=== PATIENT | female | born 1970 | race Caucasian/White ===

== ENCOUNTER 2020-11-27 11:11 | Inpatient (IN) ==
[2020-11-27] MEDS ORDERED: morphine 2 MG/ML VIAL IV PRN (11:25)
[2020-11-27] MEDS ORDERED: 0.9 % SODIUM CHLORIDE 2,000 ML IV ONE (11:25)
--- NOTE | 2020-11-27 11:30 | Emergency Department Note ---
HPI General Chief complaint: Abdominal Pain Stated complaint: Diverticulitis Time Seen by Provider: 11/27/20 11:18 Source: patient Mode of arrival: ambulatory Limitations: no limitations History of Present Illness HPI Narrative: Patient is a 50-year-old lady who arrives the emergency department by private vehicle accompanied by her complaining of abdominal pain. History is provided by the patient as well as review of her medical records. Patient says she started having abdominal pain rather suddenly about 24 hours ago. Is been progressively worsening. She denies any associated nausea vomiting or diarrhea. She has had subjective fever and chills. She was seen in our emergency department yesterday underwent a CT scan that revealed uncomplicated diverticulitis. She was treated symptomatically and discharged home with a prescription for antibiotics. The patient has been taking her medications at home but has continued to have worsening abdominal pain fever and chills. Because her symptoms were not being adequately controlled by her current prescriptions she decided to come in for further evaluation. Related Data Home Medications Medication Instructions Recorded Confirmed acetaminophen PO PRN 04/25/16 11/26/20 cetirizine 10 mg tablet 5 mg PO QDAY PRN 05/08/18 11/26/20 Previous Rx's Medication Instructions Recorded pantoprazole 40 mg tablet,delayed See Rx Instructions .ROUTE 06/16/20 release .COMPLEX #90 tab levothyroxine 75 mcg tablet 75 mcg PO .COMPLEX #90 tab 07/16/20 methocarbamol 750 mg tablet 750 mg PO TID #30 tab 07/29/20 valacyclovir 1 gram tablet 1,000 mg PO BID #20 tab 11/25/20 ciprofloxacin HCl 500 mg PO BID #20 tab 11/26/20 hydrocodone-acetaminophen 1 tab PO Q6H PRN #20 tab 11/26/20 metronidazole 500 mg PO Q8H #30 tab 11/26/20 ondansetron HCl [Zofran] 4 mg PO Q8H PRN #30 tab 11/26/20 Allergies Allergy/AdvReac Type Severity Reaction Status Date / Time ciprofloxacin [From Cipro] Allergy Unknown Unknown Verified 11/27/20 11:12 cefuroxime [From Ceftin] AdvReac Severe Swelling Verified 11/27/20 11:12 Sulfa (Sulfonamide AdvReac Severe Swelling Verified 11/27/20 11:12 Antibiotics) Penicillins AdvReac Intermediate Rash Verified 11/27/20 11:12 albuterol AdvReac Mild Headache Verified 11/27/20 11:12 doxycycline AdvReac Unknown Unknown Verified 11/27/20 11:12 doxylamine AdvReac Unknown Unknown Verified 11/27/20 11:12 Review of Systems ROS ROS Narrative: Narrative: All systems ED: reviewed and negative except as stated. Cardiovascular: Denies chest pain Respiratory: Denies shortness of breath and cough PFSH Narrative Patient History Narrative: Narrative: Medical/Surgical/Family History All Active Problems (Updated 11/27/20 @ 14:28 by Pedrito Mendez DO) Diverticulitis large intestine w/o perforation or abscess w/o bleeding (Acute) Sepsis (Acute) Fever (Acute) Abdominal pain (Acute) Back pain (Acute) Muscle spasm (Acute) Encounter for mammogram to establish baseline mammogram (Acute) Wellness examination (Acute) Sinus infection (Acute) Anemia (Chronic) Eczema (Chronic) Swelling of finger, left (Chronic) Epistaxis, recurrent (Chronic) Human papillomavirus (Chronic) Arthritis (Chronic) Epistaxis (Acute) Epistaxis, recurrent (Acute) Frequent UTI (Chronic) History of Papanicolaou smear of cervix (Chronic) History of mammogram (Chronic) Obesity (Chronic) Pain in right wrist (Chronic) 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) Reactive airway disease (Chronic) Knee pain (Chronic) Hypothyroidism (Chronic) Hyperlipidemia (Chronic) Carpal tunnel syndrome (Chronic) HSV (herpes simplex virus) infection (Chronic) Depression (Chronic) Migraine (Chronic) Gastroesophageal reflux disease (Chronic) Medical History Abdominal pain Anxiety Arthritis Back pain Bleeding tendency from nose Carpal tunnel syndrome Change in eating habits Chills Crepitant synovitis of right wrist Cystitis, acute Depression Dyspnea Eczema Epistaxis, recurrent Anemia: likely due to epistaxis, has had cautery Fatigue Fever Frequent UTI Gastroesophageal reflux disease Headache History of mammogram History of Papanicolaou smear of cervix Hoarseness HSV (herpes simplex virus) infection Human papillomavirus Hyperlipidemia Hypothyroidism Internal derangement of left knee Knee pain Leg edema 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 Maxillary sinusitis Migraine Muscle spasm Nasal congestion Obesity Pain in right wrist Reactive airway disease Sinusitis, acute Subscapularis (muscle) sprain Swelling of finger, left Torticollis, unspecified URI, acute Urinary tract infection Wellness examination Wheezing Surgical History H/O of nasal cauterization History of sinus surgery (~1989) 1989 History of surgery (~09/2005) Right middle finger Family History Mother High cholesterol Thyroid disease Family/Other Stomach cancer Uncle Grandmother Diabetes Maternal Stroke Maternal Grandfather Diabetes Maternal Other Hypertension Social History Smoking Status: Never smoker Alcohol Intake Frequency: does not drink Substance Use: does not use Exam Narrative Narrative: I reviewed the vital signs. Gen -patient is awake and alert and and appears significantly uncomfortable. The patient is well groomed. HEENT -head is atraumatic. There is no conjunctival pallor or scleral icterus. Mucous membranes are dry. There is a small eschar with surrounding erythema over the left upper lip consistent with a herpetic eruption CV -S1-S2 regular rate and rhythm. Peripheral pulses are palpable. There is no JVD. Resp -breathing is nonlabored. Lungs are clear to auscultation bilaterally. There is no cyanosis. GI - Abdomen is soft and moderately tender to palpation diffusely. There is no guarding. There is mild rebound tenderness that does not localize. Derm -skin is warm and dry. There is no visible rash. MSK -present extremities are atraumatic. Psych -patient has appropriate affect. The patient does not appear internally stimulated. Neuro -patient answers questions appropriately with fluent speech. Patient moves all present extremities equally. General Limitations: no limitations Course Vital Signs Vital signs: Vital Signs Temperature 97.2 F 11/27/20 11:12 Pulse Rate 103 H 11/27/20 11:12 Respiratory Rate 16 11/27/20 11:12 Blood Pressure 115/75 11/27/20 11:12 Pulse Oximetry (%) 96 11/27/20 11:12 Temperature 97.2 F 11/27/20 11:12 Pulse Rate 97 H 11/27/20 14:01 Respiratory Rate 16 11/27/20 11:12 Blood Pressure 106/82 11/27/20 14:01 Pulse Oximetry (%) 98 11/27/20 14:01 [facility] Narrative Medical decision making narrative: Patient returns with persistent abdominal pain after recent diagnosis of uncomplicated diverticulitis. Her initial abdominal examination is not suggestive of surgical complications of her previously diagnosed disease process. Her labs are remarkable for 17,000 white blood cell count that has significantly increased from yesterday's testing. There are no other hematologic or electrolyte derangements. She was given IV fluids and analgesics in the emergency department without satisfactory control of her symptoms. Given this and the lack of response to previously prescribed appropriate outpatient therapy I recommended she be admitted she was agreeable. I discussed the patient's history examination and diagnostic findings with Dr. Jean, who agrees with the plan of care and accepts admission. He evaluated the patient in person in the emergency department. Lab Data Lab results reviewed: Yes I reviewed the patient's lab results. Result diagrams: 11/27/20 11:35 11/27/20 11:35 Labs: Lab Results 11/27/20 11/27/20 11/27/20 Range/Units 11:35 11:35 11:35 WBC 17.9 H (4.5-11.0) K/mcL RBC 3.81 (3.59-5.38) M/mcL Hgb 11.3 (11.2-15.7) g/dL Hct 33.4 L (34.1-44.9) % MCV 87.7 (80.0-100.0) fL MCH 29.7 (26.0-34.0) pg MCHC 33.8 (31.0-36.0) g/dL RDW 13.4 (11.5-14.5) % Plt Count 243 (140-440) K/mcL MPV 9.1 (7.4-10.4) fL Neut % (Auto) 88.6 H (38.0-78.0) % Lymph % (Auto) 6.5 L (15.5-49.0) % [place] % (Auto) 4.7 (1.0-12.0) % Eos % (Auto) 0.1 (0.0-7.0) % Baso % (Auto) 0.1 (0.0-2.0) % Lymph # (Auto) 1.16 L (1.50-4.80) K/mcL [place] # (Auto) 0.84 (0.10-0.90) K/mcL Eos # (Auto) 0.01 (0.00-0.70) K/mcL Baso # (Auto) 0.02 (0.00-0.30) K/mcL Absolute Neutrophils 15.88 H (1.80-8.00) K/mcL VBG Lactic Acid 1.2 (0.5-2.0) mmol/L Sodium 133 (133-145) mmol/L Potassium 3.3 (3.3-5.1) mmol/L Chloride 97 (96-108) mmol/L Carbon Dioxide 23 (22-30) mmol/L Anion Gap 13.0 (8.0-16.0) BUN 13 (6-20) mg/dL Creatinine 1.0 (0.6-1.1) mg/dL GFR Calculation 65 Glucose 110 H (70-105) mg/dL Calcium 8.5 L (8.6-10.4) mg/dL Total Bilirubin 2.2 H (0.1-1.0) mg/dL AST 11 (<32) U/L ALT 7 (<40) U/L Alkaline Phosphatase 83 (39-117) U/L Total Protein 7.0 (5.9-8.4) gm/dL Albumin 3.7 (3.2-5.2) gm/dL Globulin 3.3 (2.2-3.7) gm/dL Albumin/Globulin Ratio 1.1 (1.0-2.3) Discharge Plan Patient/Caregiver Discharge Instructions Pt seen by MANAGER UTILITY/PA only: No Clinical Impression: Diverticulitis large intestine w/o perforation or abscess w/o bleeding, Sepsis Patient Disposition: Home, Self-Care Follow up with: Melissa Patel DO [Primary Care Provider] - Prescriptions: No Action pantoprazole 40 mg tablet,delayed release (DR/EC) See Rx Instructions .ROUTE .COMPLEX Qty: 90 RF: 1 levothyroxine 75 mcg tablet 75 mcg PO .COMPLEX Qty: 90 RF: 1 valacyclovir [Valtrex] 1 gram tablet 1,000 mg PO BID Qty: 20 RF: 2 cetirizine [Aller-Harper] 10 mg tablet 5 mg PO QDAY PRNRF: 0 acetaminophen PO PRNRF: 0 methocarbamol 750 mg tablet 750 mg PO TID Qty: 30 RF: 1 ciprofloxacin HCl 500 mg tablet 500 mg PO BID Qty: 20 RF: 0 metronidazole 500 mg tablet 500 mg PO Q8H Qty: 30 RF: 0 ondansetron HCl [Zofran] 4 mg tablet 4 mg PO Q8H PRN (Reason: nausea and vomiting) Qty: 30 RF: 1 hydrocodone-acetaminophen 5-325 mg tablet 1 tab PO Q6H PRN (Reason: pain) Qty: 20 RF: 0
[2020-11-27 12:11] LABS: Basophils # (Auto) 0.02 K/mcL (0.00-0.30); Basophils % (Auto) 0.1 % (0.0-2.0); Eosinophils # (Auto) 0.01 K/mcL (0.00-0.70); Eosinophils % (Auto) 0.1 % (0.0-7.0); Hematocrit 33.4 % (34.1-44.9); Hemoglobin 11.3 g/dL (11.2-15.7); Lymphocytes # (Auto) 1.16 K/mcL (1.50-4.80); Lymphocytes % (Auto) 6.5 % (15.5-49.0); Mean Cell Volume 87.7 fL (80.0-100.0); Mean Corpuscular HGB Conc 33.8 g/dL (31.0-36.0); Mean Platelet Volume 9.1 fL (7.4-10.4); Monocytes # (Auto) 0.84 K/mcL (0.10-0.90); Monocytes % (Auto) 4.7 % (1.0-12.0); Neutrophils % (Auto) 88.6 % (38.0-78.0); Platelet Count 243 K/mcL (140-440); RBC 3.81 M/mcL (3.59-5.38); Red Cell Distribution Width 13.4 % (11.5-14.5); WBC 17.9 K/mcL (4.5-11.0)
[2020-11-27 12:43] LABS: ALT/SGPT 7 U/L (<40); AST/SGOT 11 U/L (<32); Albumin 3.7 gm/dL (3.2-5.2); Albumin/Globulin Ratio 1.1 (1.0-2.3); Alkaline Phosphatase 83 U/L (39-117); Bilirubin,Total 2.2 mg/dL (0.1-1.0); Blood Urea Nitrogen 13 mg/dL (6-20); Calcium 8.5 mg/dL (8.6-10.4); Carbon Dioxide 23 mmol/L (22-30); Chloride 97 mmol/L (96-108); Globulin 3.3 gm/dL (2.2-3.7); Glomerular Filtration Rate 65; Glucose 110 mg/dL (70-105)
[2020-11-27] MEDS ORDERED: ONDANSETRON 4 MG/2 ML VIAL IV ONE (13:37)
[2020-11-27] MEDS ORDERED: metroNIDAZOLE 500 MG/100 ML BAG IV ONE (13:37)
[2020-11-27] MEDS ORDERED: morphine 4 MG/ML VIAL IV ONE (13:37)
[2020-11-27] MEDS ORDERED: cefTRIAXone 1 GM VIAL IV ONE (13:37)
[2020-11-27] MEDS ORDERED: CLINDAMYCIN 600 MG in DEXTROSE 5% IN WATER 50 ML IV SCH (14:45)
--- NOTE | 2020-11-27 14:45 | General Surg History&Physical ---
HPI History of Present Illness Patient information: Note initiated : 11/27/20 at 2:36 pm Service Date, if different from initiated Date: [] Patient: Dang Dunn 50 y/o F admitted on for Diverticulitis. Chief Complaint: [] Chief complaint: Left lower quadrant pain History of present illness: Ms. Dunn is a 50 year old F admitted with diverticulitis. The patient had acute onset of severe left lower quadrant and hypogastric pain 2 days prior to admission. She was seen in the emergency room on yesterday and CT shows uncomplicated diverticulitis without abscess or free air. 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 Her symptoms became much worse today and she is having severe pain with nausea and vomiting. She is admitted for treatment with IV medications and control of symptoms. If she improves she will be reevaluated by CT in 72 to 96 hours and if that is improved she will be discharged home on oral medicines for 2 weeks. Because of multiple allergies including penicillins, cephalosporins and Cipro her available antibiotics will be limited. Constitutional Constitutional: Present chills, fatigue, lethargy, malaise, night sweats and weakness EENT Eyes: Absent change in vision, decreased night vision, itchy eyes and loss of peripheral vision Ears: Absent decreased hearing and tinnitus Nose, mouth and throat: Present nasal congestion, nasal discharge and sinus pressure; Absent hoarseness Cardiovascular Cardiovascular: Present leg edema; Absent chest pain with activity, claudication, dyspnea on exertion, palpatations, paroxysmal nocturnal dyspnea and rapid heart rate Respiratory Respiratory: Absent cough, dyspnea on exertion and chest congestion Gastrointestinal Gastrointestinal: Present abdominal pain, change in bowel habits, constipation, cramping, early satiety, heartburn, nausea and vomiting Genitourinary Genitourinary: Present dysuria, urinary frequency, urinary incontinence and urinary urgency Musculoskeletal Musculoskeletal: Absent abnormal gait, arthralgias and myalgias Integumentary Integumentary: Absent new lesions, pruritus, rash and swelling Neurological Neurological: Absent dizziness, headache(s) and radicular pain Psychiatric Psychiatric: Absent depression Endocrine Endocrine: Absent change in body appearance, palpitations, polydipsia, polyphagia and polyuria Hematologic/Lymphatic Hematologic/Lymphatic: Absent easy bleeding, easy bruising and lymphadenopathy Allergic/Immunologic Allergic/Immunologic: Absent tongue swelling, throat swelling, uticaria, wheezing and lip swelling PFSH PFSH All Active Problems Diverticulitis large intestine w/o perforation or abscess w/o bleeding (Acute) Sepsis (Acute) Fever (Acute) Abdominal pain (Acute) Back pain (Acute) Muscle spasm (Acute) Encounter for mammogram to establish baseline mammogram (Acute) Wellness examination (Acute) Sinus infection (Acute) Anemia (Chronic) Eczema (Chronic) Swelling of finger, left (Chronic) Epistaxis, recurrent (Chronic) Human papillomavirus (Chronic) Arthritis (Chronic) Epistaxis (Acute) Epistaxis, recurrent (Acute) Frequent UTI (Chronic) History of Papanicolaou smear of cervix (Chronic) History of mammogram (Chronic) Obesity (Chronic) Pain in right wrist (Chronic) 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) Reactive airway disease (Chronic) Knee pain (Chronic) Hypothyroidism (Chronic) Hyperlipidemia (Chronic) Carpal tunnel syndrome (Chronic) HSV (herpes simplex virus) infection (Chronic) Depression (Chronic) Migraine (Chronic) Gastroesophageal reflux disease (Chronic) Medical History Abdominal pain Anxiety Arthritis Back pain Bleeding tendency from nose Carpal tunnel syndrome Change in eating habits Chills Crepitant synovitis of right wrist Cystitis, acute Depression Dyspnea Eczema Epistaxis, recurrent Anemia: likely due to epistaxis, has had cautery Fatigue Fever Frequent UTI Gastroesophageal reflux disease Headache History of mammogram History of Papanicolaou smear of cervix Hoarseness HSV (herpes simplex virus) infection Human papillomavirus Hyperlipidemia Hypothyroidism Internal derangement of left knee Knee pain Leg edema Ligament tear 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 Maxillary sinusitis Migraine Muscle spasm Nasal congestion Obesity Pain in right wrist Reactive airway disease Sinusitis, acute Subscapularis (muscle) sprain Swelling of finger, left Torticollis, unspecified URI, acute Urinary tract infection Wellness examination Wheezing Surgical History H/O of nasal cauterization History of sinus surgery (~1989) 1990 History of surgery (~09/2005) Right middle finger Family History Mother High cholesterol Thyroid disease Family/Other Stomach cancer Uncle Grandmother Diabetes Maternal Stroke Maternal Grandfather Diabetes Maternal Other Hypertension Social History marital status: occupational status: employed occupation: [employer] physical activity: walking alcohol intake frequency: does not drink substance use type: does not use MEDS/ALLERGIES Home Medications and Allergies Home Medications Medication Instructions Recorded Confirmed Type acetaminophen PO PRN 04/25/16 11/26/20 History cetirizine 10 mg tablet 5 mg PO QDAY PRN 05/08/18 11/26/20 History pantoprazole 40 mg tablet,delayed See Rx Instructions .ROUTE 06/16/20 11/26/20 Rx release .COMPLEX #90 tab levothyroxine 75 mcg tablet 75 mcg PO .COMPLEX #90 tab 07/16/20 11/26/20 Rx methocarbamol 750 mg tablet 750 mg PO TID #30 tab 07/29/20 11/26/20 Rx valacyclovir 1 gram tablet 1,000 mg PO BID #20 tab 11/25/20 11/26/20 Rx ciprofloxacin HCl 500 mg PO BID #20 tab 11/26/20 Rx hydrocodone-acetaminophen 1 tab PO Q6H PRN #20 tab 11/26/20 Rx metronidazole 500 mg PO Q8H #30 tab 11/26/20 Rx ondansetron HCl [Zofran] 4 mg PO Q8H PRN #30 tab 11/26/20 Rx Allergies Allergy/AdvReac Type Severity Reaction Status Date / Time ciprofloxacin [From Cipro] Allergy Unknown Unknown Verified 11/27/20 11:12 cefuroxime [From Ceftin] AdvReac Severe Swelling Verified 11/27/20 11:12 Sulfa (Sulfonamide AdvReac Severe Swelling Verified 11/27/20 11:12 Antibiotics) Penicillins AdvReac Intermediate Rash Verified 11/27/20 11:12 albuterol AdvReac Mild Headache Verified 11/27/20 11:12 doxycycline AdvReac Unknown Unknown Verified 11/27/20 11:12 doxylamine AdvReac Unknown Unknown Verified 11/27/20 11:12 Physical Examination Vital Signs Vital signs: Temp Pulse Resp BP Pulse Ox 97.2 F 100 H 16 106/82 95 11/27/20 11:12 11/27/20 14:26 11/27/20 11:12 11/27/20 14:01 09/04/21 14:26 General physical appearance General physical exam: well developed, well nourished, severe distress, severe pain and obese Eyes Eye exam: PERRL and normal ocular movement ENT ENT exam: normal pinna, normal nares, normal mucosa, no hearing loss and no congestion Head Head exam IM: Present atraumatic, normal inspection and normocephalic Neck Neck exam: no masses, no bruits, trachea midline, no lymphadenopathy and no venous distension Cardiovascular Cardiovascular exam IM: Present normal rate and rhythm, RRR, +S1 and +S2; Absent JVD and systolic murmur Respiratory Respiratory exam: normal expansion, normal respiratory effort and clear to auscultation Abdomen Abdomen: Present soft, tender (Right lower quadrant and hypogastric tenderness with guarding), guarding and distended Integumentary Integumentary: Present no rash, no growths and no abnormal pigmentation Neurologic Neurologic: Present normal coordination and normal sensation Musculoskeletal Musculoskeletal: Present normal gait and normal posture Psychiatric Psychiatric: Present oriented to time, oriented to person, oriented to place, speech is normal and memory intact Results Labs Result diagrams: 11/27/20 11:35 11/27/20 11:35 Labs: Abnormal lab results 11/27/20 11/27/20 Range/Units 11:35 11:35 WBC 17.9 H (4.5-11.0) K/mcL Hct 33.4 L (34.1-44.9) % Neut % (Auto) 88.6 H (38.0-78.0) % Lymph % (Auto) 6.5 L (15.5-49.0) % Lymph # (Auto) 1.16 L (1.50-4.80) K/mcL Absolute Neutrophils 15.88 H (1.80-8.00) K/mcL Glucose 110 H (70-105) mg/dL Calcium 8.5 L (8.6-10.4) mg/dL Total Bilirubin 2.2 H (0.1-1.0) mg/dL Diabetes panel 11/27/20 Range/Units 11:35 Sodium 133 (133-145) mmol/L Potassium 3.3 (3.3-5.1) mmol/L Chloride 97 (96-108) mmol/L Carbon Dioxide 23 (22-30) mmol/L BUN 13 (6-20) mg/dL Creatinine 1.0 (0.6-1.1) mg/dL Glucose 110 H (70-105) mg/dL Calcium 8.5 L (8.6-10.4) mg/dL AST 11 (<32) U/L ALT 7 (<40) U/L Alkaline Phosphatase 83 (39-117) U/L Total Protein 7.0 (5.9-8.4) gm/dL Albumin 3.7 (3.2-5.2) gm/dL Calcium panel 11/27/20 Range/Units 11:35 Calcium 8.5 L (8.6-10.4) mg/dL Albumin 3.7 (3.2-5.2) gm/dL Pituitary panel 11/27/20 Range/Units 11:35 Sodium 133 (133-145) mmol/L Potassium 3.3 (3.3-5.1) mmol/L Chloride 97 (96-108) mmol/L Carbon Dioxide 23 (22-30) mmol/L BUN 13 (6-20) mg/dL Creatinine 1.0 (0.6-1.1) mg/dL Glucose 110 H (70-105) mg/dL Calcium 8.5 L (8.6-10.4) mg/dL Adrenal panel 11/27/20 Range/Units 11:35 Sodium 133 (133-145) mmol/L Potassium 3.3 (3.3-5.1) mmol/L Chloride 97 (96-108) mmol/L Carbon Dioxide 23 (22-30) mmol/L BUN 13 (6-20) mg/dL Creatinine 1.0 (0.6-1.1) mg/dL Glucose 110 H (70-105) mg/dL Calcium 8.5 L (8.6-10.4) mg/dL Total Bilirubin 2.2 H (0.1-1.0) mg/dL AST 11 (<32) U/L ALT 7 (<40) U/L Alkaline Phosphatase 83 (39-117) U/L Total Protein 7.0 (5.9-8.4) gm/dL Albumin 3.7 (3.2-5.2) gm/dL All other labs normal. A/P Assessment and plan (1) Diverticulitis large intestine w/o perforation or abscess w/o bleeding: Status: Acute (2) Reactive airway disease: Status: Chronic (3) Depression: Status: Chronic (4) Gastroesophageal reflux disease: Status: Chronic Narrative A/P Narrative: Clindamycin and metronidazole IV antibiotics Antiemetics IV hydration Check CT of abdomen and pelvis with IV contrast in 3 to 4 days based on symptoms Time Spent With Patient Time: Total time spent is greater than 50% in coordination of care (as documented) at patient's floor/unit and/or counseling patient:
[2020-11-27] MEDS ORDERED: cefTRIAXone 2 GM in DEXTROSE 5% IN WATER 50 ML IV SCH (15:36)
[2020-11-27] MEDS ORDERED: HYDROmorphone 1 MG/ML SYRINGE IV PRN (15:36)
[2020-11-27] MEDS ORDERED: ONDANSETRON 4 MG/2 ML VIAL IV PRN (15:36)
[2020-11-27] MEDS: 0.9 % SODIUM CHLORIDE 1,000 ML IV SCH ×2 (16:20→23:51)
--- NOTE | 2020-11-27 16:33 | XRay Report ---
CLINICAL INFORMATION: preop COMPARISON: None. FINDINGS: Cardiomediastinal silhouette and pulmonary vessels are normal. Minor bibasilar atelectasis noted. No infiltrates or effusions. Right diaphragm is mildly elevated IMPRESSION: No acute disease. Mild elevation right diaphragm Interpreted and Authenticated by: Félix Franco 11/27/20
[2020-11-27] MEDS: metroNIDAZOLE 500 MG/100 ML BAG IV SCH ×2 (17:24→23:17)
[2020-11-27] MEDS ORDERED: PROMETHAZINE 25 MG/ML VIAL IV PRN (17:46)
[2020-11-27] MEDS: METOCLOPRAMIDE 10 MG/2 ML VIAL IV SCH ×2 (18:01→23:17)
[2020-11-27] MEDS ORDERED: METOCLOPRAMIDE 10 MG/2 ML VIAL ONE ×2 (18:02→23:49)
[2020-11-27] MEDS ORDERED: fentaNYL 100 MCG/2 ML VIAL IV PRN (18:09)
[2020-11-27] MEDS ORDERED: PROMETHAZINE 25 MG/ML VIAL ONE (19:49)
[2020-11-27] MEDS: CLINDAMYCIN 600 MG in DEXTROSE 5% IN WATER 50 ML IV SCH (19:50)
[2020-11-27] MEDS: 0.9 % SODIUM CHLORIDE 10 ML SYRINGE IV SCH (20:25)
[2020-11-28] MEDS ORDERED: cefTRIAXone 1 GM VIAL ONE (00:18)
[2020-11-28] MEDS: CLINDAMYCIN 600 MG in DEXTROSE 5% IN WATER 50 ML IV SCH ×3 (00:31→13:46)
[2020-11-28] MEDS: 0.9 % SODIUM CHLORIDE 1,000 ML IV SCH ×5 (03:36→22:46)
[2020-11-28] MEDS: oxyCODONE HCL 5 MG TABLET PO PRN ×2 (04:18→12:23)
[2020-11-28] MEDS: metroNIDAZOLE 500 MG/100 ML BAG IV SCH ×3 (05:48→19:28)
[2020-11-28] MEDS ORDERED: METOCLOPRAMIDE 10 MG/2 ML VIAL ONE (05:50)
[2020-11-28] MEDS: METOCLOPRAMIDE 10 MG/2 ML VIAL IV SCH ×3 (05:50→17:36)
[2020-11-28] MEDS: 0.9 % SODIUM CHLORIDE 10 ML SYRINGE IV SCH ×3 (05:51→22:41)
[2020-11-28 07:37] LABS: Basophils # (Auto) 0.02 K/mcL (0.00-0.30); Basophils % (Auto) 0.1 % (0.0-2.0); Eosinophils # (Auto) 0 K/mcL (0.00-0.70); Eosinophils % (Auto) 0 % (0.0-7.0); Hematocrit 30.5 % (34.1-44.9); Hemoglobin 9.9 g/dL (11.2-15.7); Lymphocytes % (Auto) 6.5 % (15.5-49.0); Mean Cell Volume 91.9 fL (80.0-100.0); Mean Corpuscular HGB Conc 32.5 g/dL (31.0-36.0); Mean Platelet Volume 9.5 fL (7.4-10.4); Monocytes # (Auto) 0.82 K/mcL (0.10-0.90); Monocytes % (Auto) 4.4 % (1.0-12.0); Platelet Count 233 K/mcL (140-440); RBC 3.32 M/mcL (3.59-5.38); Red Cell Distribution Width 13.4 % (11.5-14.5); WBC 18.5 K/mcL (4.5-11.0)
[2020-11-28] MEDS: PANTOPRAZOLE 40 MG TABLET PO SCH (07:55)
[2020-11-28] MEDS ORDERED: cefTRIAXone 2 GM in DEXTROSE 5% IN WATER 50 ML IV SCH (09:00)
[2020-11-28 09:04] LABS: ALT/SGPT 6 U/L (<40); AST/SGOT 10 U/L (<32); Albumin 2.8 gm/dL (3.2-5.2); Albumin/Globulin Ratio 0.9 (1.0-2.3); Alkaline Phosphatase 122 U/L (39-117); Bilirubin,Direct 0.3 mg/dL (<0.3); Bilirubin,Total 0.9 mg/dL (0.1-1.0); Blood Urea Nitrogen 10 mg/dL (6-20); Carbon Dioxide 21 mmol/L (22-30); Chloride 103 mmol/L (96-108); Globulin 3.2 gm/dL (2.2-3.7); Glomerular Filtration Rate 86; Glucose 103 mg/dL (70-105); Lactate Dehydrogenase 214 U/L (135-225); Phosphorous 0.9 mg/dL (2.5-4.5); Triglycerides 102 mg/dL (<150); Uric Acid 3.7 mg/dL (2.5-8.0)
[2020-11-28] MEDS: KETOROLAC 30 MG/ML VIAL IV PRN ×2 (10:03→21:15)
--- NOTE | 2020-11-28 14:08 | General Surgery Progress Note ---
SUBJECTIVE Subjective Patient information: Note initiated : 11/28/20 at 1:56 pm Service Date, if different from initiated Date: [] Patient: Dang Dunn 50 y/o F admitted on 11/27/20 for Diverticulitis. Chief Complaint: [] Principal diagnosis: Acute diverticulitis Interval history: Patient is having continued left lower quadrant and hypogastric pain. She is afebrile however her white blood count has increased. She is afebrile. Her heart rate is increase 100-112 range. Constitutional Vitals: Vital Signs Temp Pulse Resp BP Pulse Ox 97.7 F 109 H 18 112/69 95 11/28/20 11:28 11/28/20 11:28 11/28/20 11:28 11/28/20 11:28 11/28/20 11:28 Period Temp Pulse Resp BP Sys/Monique Pulse Ox Last 24 Hr 97.2 F-99.2 F 83-125 16-22 106-126/69-84 93-98 Intake and Output 11/27/20 11/28/20 11/28/20 21:59 05:59 13:59 Intake Total 254 1754 424 Balance 254 1754 424 Weight 214 lb 7 oz 215 lb Intake & Output: Intake & Output 11/27/20 11/28/20 11/28/20 21:59 05:59 13:59 Intake Total 254 1754 424 Balance 254 1754 424 Weight 214 lb 7 oz 215 lb Intake: IV 254 1154 304 Sodium Chloride 0.9% 1,000 ml @ 1000 125 mls/hr IV .Q8H RC Rx#: [id number] Cleocin 600 mg In Dextrose 5% 54 54 54 in Water 50 ml @ 100 mls/hr IV Q6H RC Rx#:[id number] Rocephin 2 gm In Dextrose 5% in 50 Water 50 ml @ 100 mls/hr IV Q24H RC Rx#:[id number] Oral 0 600 120 Other: Meal Breakfast Percent of Meal Consumed 100% Feeding Ability Independent Stool Size Small Moderate Small Stool Color Brown Brown Brown Yellow Yellow Yellow Stool Consistency Loose Loose Liquid # Voids 1 1 1 # Unmeasured Emesis 1 # Bowel Movements 1 Neck Neck exam: Present full ROM; Absent tenderness Respiratory Respiratory exam: Present CTAB; Absent rales, rhonchi and wheezes Cardiovascular Cardiovascular exam: Present normal rate and rhythm, JVD, RRR, +S1 and +S2 GI/Abdominal GI/Abdominal exam: Present normal bowel sounds, diminished bowel sounds and tenderness; Absent guarding Additional comments: Tenderness with guarding in hypogastrium and left lower quadrant; mild distention; hypoactive bowel sounds Extremities Exam Extremities exam: Present full ROM and normal inspection; Absent tenderness Neurological Exam Neurological exam: Present alert; Absent motor sensory deficit and oriented X3 Psychiatric Psychiatric exam: Present normal affect and normal mood A/P Assessment and plan (1) Diverticulitis large intestine w/o perforation or abscess w/o bleeding: Status: Acute (2) Reactive airway disease: Status: Chronic (3) Depression: Status: Chronic (4) Gastroesophageal reflux disease: Status: Chronic Narrative A/P Narrative: Switch antibiotics to cefepime and continue metronidazole Time Spent With Patient Time: Total time spent is greater than 50% in coordination of care (as documented) at patient's floor/unit and/or counseling patient:
[2020-11-28] MEDS: CEFEPIME 2 GM VIAL IV SCH ×2 (14:56→22:41)
[2020-11-28] MEDS: POTASSIUM PHOSPHATE 40 MEQ in DEXTROSE 5% IN WATER 500 ML IV SCH ×2 (14:56→21:21)
[2020-11-29] MEDS: metroNIDAZOLE 500 MG/100 ML BAG IV SCH ×5 (00:27→23:42)
[2020-11-29] MEDS: METOCLOPRAMIDE 10 MG/2 ML VIAL IV SCH ×5 (00:31→23:21)
[2020-11-29] MEDS: oxyCODONE HCL 5 MG TABLET PO PRN (01:43)
[2020-11-29] MEDS: CEFEPIME 2 GM VIAL IV SCH ×3 (05:29→21:34)
[2020-11-29] MEDS: 0.9 % SODIUM CHLORIDE 10 ML SYRINGE IV SCH ×3 (05:57→21:34)
[2020-11-29 06:54] LABS: Basophils # (Auto) 0.03 K/mcL (0.00-0.30); Basophils % (Auto) 0.2 % (0.0-2.0); Eosinophils # (Auto) 0.08 K/mcL (0.00-0.70); Eosinophils % (Auto) 0.5 % (0.0-7.0); Hematocrit 31.8 % (34.1-44.9); Hemoglobin 9.9 g/dL (11.2-15.7); Lymphocytes # (Auto) 1.76 K/mcL (1.50-4.80); Lymphocytes % (Auto) 11.1 % (15.5-49.0); Mean Cell Volume 92.2 fL (80.0-100.0); Mean Corpuscular HGB Conc 31.1 g/dL (31.0-36.0); Mean Platelet Volume 9.6 fL (7.4-10.4); Monocytes # (Auto) 0.72 K/mcL (0.10-0.90); Monocytes % (Auto) 4.5 % (1.0-12.0); Neutrophils % (Auto) 83.7 % (38.0-78.0); Platelet Count 263 K/mcL (140-440); RBC 3.45 M/mcL (3.59-5.38); Red Cell Distribution Width 13.5 % (11.5-14.5); WBC 15.9 K/mcL (4.5-11.0)
[2020-11-29] MEDS: 0.9 % SODIUM CHLORIDE 1,000 ML IV SCH ×4 (07:45→22:25)
[2020-11-29] MEDS: KETOROLAC 30 MG/ML VIAL IV PRN ×2 (07:57→23:33)
[2020-11-29] MEDS: PANTOPRAZOLE 40 MG TABLET PO SCH (07:58)
[2020-11-29] MEDS ORDERED: SODIUM PHOSPHATE 30 MMOL in DEXTROSE 5% IN WATER 500 ML IV ONE (08:00)
--- NOTE | 2020-11-29 12:37 | General Surgery Progress Note ---
SUBJECTIVE Subjective Patient information: Note initiated : 11/29/20 at 12:37 pm Service Date, if different from initiated Date: [] Patient: Dang Dunn 50 y/o F admitted on 11/27/20 for Diverticulitis. Chief Complaint: [] Principal diagnosis: Acute diverticulitis Interval history: Patient states that she feels better. She has had low-grade temperature of 99 5. Her abdominal pain is significantly better. She still has mild left lower quadrant and hypogastric tenderness. Her nausea is improved. White blood count 15.9, hemoglobin 9.9, hematocrit 31.8. Constitutional Vitals: Vital Signs Temp Pulse Resp BP Pulse Ox 98.7 F 106 H 16 132/88 96 11/29/20 11:51 11/29/20 11:51 11/29/20 11:51 11/29/20 11:51 11/29/20 11:51 Period Temp Pulse Resp BP Sys/Monique Pulse Ox Last 24 Hr 98 F-99.2 F 94-113 16-20 120-141/66-95 94-97 Intake and Output 11/28/20 11/29/20 11/29/20 21:59 05:59 13:59 Intake Total 1663.0909 749.0909 450 Balance 1663.0909 749.0909 450 Weight 221 lb 7 oz Intake & Output: Intake & Output 11/28/20 11/29/20 11/29/20 21:59 05:59 13:59 Intake Total 1663.0909 749.0909 450 Balance 1663.0909 749.0909 450 Weight 221 lb 7 oz Intake: IV 1663.0909 609.0909 100 Sodium Chloride 0.9% 1,000 ml @ 1000 125 mls/hr IV .Q8H RC Rx#: [id number] Cleocin 600 mg In Dextrose 5% 54 in Water 50 ml @ 100 mls/hr IV Q6H RC Rx#:[id number] Potassium Phosphate 40 Meq In 509.0909 509.0909 Dextrose 5% in Water 500 ml @ 127.273 mls/hr IV Q4H RC Rx#: [id number] Oral 140 350 Other: Meal Breakfast Percent of Meal Consumed 100% Feeding Ability Independent Stool Size Small Moderate Stool Color Yellow Yellow Brown Stool Consistency Loose Loose Loose # Voids 1 2 1 # Bowel Movements 1 4 1 Head Head exam: Present atraumatic, normal inspection and normocephalic Eye Eye exam: Present EOMI, normal appearance and PERRL ENT ENT exam: Present mucous membranes moist and normal oropharynx Neck Neck exam: Present full ROM; Absent tenderness Respiratory Respiratory exam: Present CTAB; Absent rales, rhonchi and wheezes Cardiovascular Cardiovascular exam: Present normal rate and rhythm, JVD, RRR, +S1 and +S2 GI/Abdominal GI/Abdominal exam: Present normal bowel sounds, diminished bowel sounds and tenderness; Absent guarding Additional comments: Tenderness with guarding in hypogastrium and left lower quadrant; mild distention; hypoactive bowel sounds Extremities Exam Extremities exam: Present full ROM and normal inspection; Absent tenderness Psychiatric Psychiatric exam: Present normal affect and normal mood Skin Skin exam: Present intact and warm A/P Assessment and plan (1) Diverticulitis large intestine w/o perforation or abscess w/o bleeding: Status: Acute (2) Sepsis: Status: Acute Qualifiers: Sepsis acute organ dysfunction status: without acute organ dysfunction Sepsis type: sepsis due to unspecified organism Qualified Code(s): A41.9 - Sepsis, unspecified organism (3) Gastroesophageal reflux disease: Status: Chronic Narrative A/P Narrative: Continue IV antibiotics Check CT of abdomen and pelvis Time Spent With Patient Time: Total time spent is greater than 50% in coordination of care (as documented) at patient's floor/unit and/or counseling patient:
[2020-11-30] MEDS: CEFEPIME 2 GM VIAL IV SCH ×2 (05:10→13:36)
[2020-11-30] MEDS: METOCLOPRAMIDE 10 MG/2 ML VIAL IV SCH ×2 (05:11→13:36)
[2020-11-30] MEDS: metroNIDAZOLE 500 MG/100 ML BAG IV SCH ×2 (05:11→13:36)
[2020-11-30] MEDS: 0.9 % SODIUM CHLORIDE 10 ML SYRINGE IV SCH ×2 (05:22→13:36)
[2020-11-30] MEDS: PANTOPRAZOLE 40 MG TABLET PO SCH (06:49)
[2020-11-30 07:40] LABS: Basophils # (Auto) 0.04 K/mcL (0.00-0.30); Basophils % (Auto) 0.5 % (0.0-2.0); Eosinophils # (Auto) 0.08 K/mcL (0.00-0.70); Eosinophils % (Auto) 1.1 % (0.0-7.0); Hematocrit 27.2 % (34.1-44.9); Hemoglobin 8.9 g/dL (11.2-15.7); Lymphocytes # (Auto) 1.22 K/mcL (1.50-4.80); Lymphocytes % (Auto) 16.6 % (15.5-49.0); Mean Cell Volume 89.2 fL (80.0-100.0); Mean Corpuscular HGB Conc 32.7 g/dL (31.0-36.0); Mean Platelet Volume 9.5 fL (7.4-10.4); Monocytes % (Auto) 6.8 % (1.0-12.0); Platelet Count 262 K/mcL (140-440); RBC 3.05 M/mcL (3.59-5.38); Red Cell Distribution Width 13.6 % (11.5-14.5); WBC 7.4 K/mcL (4.5-11.0)
[2020-11-30] MEDS ORDERED: IOPAMIDOL 100 ML BOTTLE IV ONE (07:51)
[2020-11-30] MEDS: 0.9 % SODIUM CHLORIDE 1,000 ML IV SCH ×3 (09:33→13:41)
--- NOTE | 2020-11-30 15:21 | Cat Scan Report ---
CLINICAL INFORMATION: Fall sigmoid diverticulitis COMPARISON: None. TECHNIQUE: Following enteric contrast, 80 cc of Isovue-370 were injected intravenously, and 60 seconds later, 0.625 mm helical slices were obtained from the mid heart through the subtrochanteric regions. Following reconstruction, 2.5 mm sagittal, coronal and axial reformatted images were processed and reviewed at bone, lung and soft tissue windows. Five minutes later, 0.625 mm helical slices were obtained from the mid heart through the kidneys and viewed at soft tissue windows.The exam was performed using radiation dose optimization techniques including, but not limited to, automated exposure control, adjustment of the mA and/or kV according to patient size and use of iterative reconstruction technique. FINDINGS: The lung bases are clear. No effusions. The visualized heart is grossly normal. Abdominal images show the gallbladder and bile ducts, liver, both kidneys, adrenal glands, spleen, pancreas and aorta, including aortic branches, are normal in size, configuration and attenuation without focal lesion. There is no free air, free fluid or adenopathy. Pelvic images show normal urinary bladder. Uterus and both ovaries are normal in size, configuration and attenuation. IUD in stable position within the uterus. The stomach, small bowel and appendix region are grossly normal. Mild sigmoid diverticulitis featuring diffuse wall thickening and perisigmoid phlegmon shows modest progression. Since the previous exam, two small perisigmoid abscesses have developed in the posterior perisigmoid region. Each is approximately 3 cm. Small amount of free fluid has increased in the deep true pelvis.. Bone windows show no osseous abnormality IMPRESSION: Moderate sigmoid diverticulitis slight worsening worsening. Two perisigmoid abscesses developed since the comparison CT four days ago. Each is approximately 3 cm. Interpreted and Authenticated by: Félix Franco 11/30/20
--- NOTE | 2020-11-30 15:59 | Discharge Summary ---
Discharge Provider Provider Patient information: Note initiated : 11/30/20 at 3:56 pm Service Date, if different from initiated Date: [] Patient: Dang Dunn 50 y/o F admitted on 11/27/20 for Diverticulitis. Chief Complaint: [] Date of admission: 11/27/20 15:30 Discharge date: 11/30/20 Primary care physician: Melissa Patel DO Admitting clinician: Val Jean Attending physician on admission: Val Jean Consults: 11/27/20 Consult to Physician [CONS] Stat Comment: Consulting Provider: Val Jean Reason For Exam: Physician to Consult Attending physician on discharge: Val Jean Discharging clinician: Val Jean COURSE Hospital Course Hospital course: 50-year-old female who presented to the emergency room with complaint of left lower quadrant and hypogastric pain. She was evaluated 2 days previously with the findings of diverticulitis. She was prescribed ciprofloxacin and metronidazole however she never picked up her prescriptions. Her pain became progressively worse and she returned to the emergency room where her white count had increased to 18,000. Because of multiple allergies she was treated with metronidazole and Rocephin. This did not appear to be effective so she was switched to cefepime and she had a positive response. Follow-up CT shows improvement in the inflammation of the sigmoid colon however she does have 2 small contained abscesses. Clinically patient is much improved. She is afebrile. She has minimal tenderness to palpation of her left lower quadrant and hypogastrium. She is stable enough for discharge on oral medications. The medications will be ciprofloxacin and metronidazole. She will be given Zofran to control nausea which is caused by the ciprofloxacin. She will be seen in the office in 1 week and will have follow-up CT in 2weeks. Discharge diagnosis: Acute diverticulitis with abscess Reason for admission: Diverticulitis Procedures: None Pertinent studies/significant findings: CT of abdomen and pelvis with IV contrast x2 Complications: None Time Spent with Patient Time attestation: Total time spent providing and/or coordinating discharge services: Physical Examination Vital Signs Vital signs: Temp Pulse Resp BP Pulse Ox 97.3 F 100 H 22 130/78 93 11/30/20 12:00 11/30/20 12:00 11/30/20 12:00 11/30/20 12:00 11/30/20 12:00 General physical appearance General physical exam: well developed, well nourished, severe distress, severe pain and obese Eyes Eye exam: PERRL and normal ocular movement ENT ENT exam: normal pinna, normal nares, normal mucosa, no hearing loss and no congestion Neck Neck exam: no masses, no bruits, trachea midline, no lymphadenopathy and no venous distension Cardiovascular Cardiovascular exam IM: Present normal rate and rhythm, RRR, +S1 and +S2; Absent JVD and systolic murmur Respiratory Respiratory exam: normal expansion, normal respiratory effort and clear to auscultation Abdomen Abdomen: Present tender (Minimal tenderness in hypogastrium and left lower quadrant) Integumentary Integumentary: Present no rash, no growths and no abnormal pigmentation Neurologic Neurologic: Present normal coordination and normal sensation Musculoskeletal Musculoskeletal: Present normal gait and normal posture Psychiatric Psychiatric: Present oriented to time, oriented to person, oriented to place, speech is normal and memory intact Discharge Plan Patient/Caregiver Discharge Instructions Activity: increase activity as tolerated Diet: Full Liquid Prescriptions: New ondansetron HCl [Zofran] 4 MG tablet 4 mg PO Q4-6HP PRN (Reason: nausea and vomiting) Qty: 40 RF: 2 ciprofloxacin HCl [ciprofloxacin HCl] 500 MG tablet 500 mg PO BID Qty: 40 RF: 0 oxycodone-acetaminophen [Endocet] 10-325 mg Tablet 1 tab PO Q4H PRN (Reason: Pain) Qty: 40 RF: 0 metronidazole 500 mg tablet 500 mg PO TID Qty: 60 RF: 0 Continued pantoprazole 40 mg tablet,delayed release (DR/EC) See Rx Instructions .ROUTE .COMPLEX Qty: 90 RF: 1 levothyroxine 75 mcg tablet 75 mcg PO .COMPLEX Qty: 90 RF: 1 cetirizine [Aller-Harper] 10 mg tablet 5 mg PO QDAY PRN (Reason: Allergy Symptoms) RF: 0 aspirin 81 mg Tablet 81 mg PO QDAY RF: 0 ergocalciferol (vitamin D2) 1,000 unit Tablet 1,000 tab PO QDAY RF: 0 Follow Up Plan Follow up with: Val Jean MD [Physician] - 12/07/20 Melissa Patel DO [Primary Care Provider] - Patient Disposition: Home, Self-Care Plan of Treatment: Continue antibiotics x2 weeks Follow-up in the office in [address] of the abdomen and pelvis Prognosis: Good Rehab Potential: Good I certify that the patient requires SNF services: Yes Overall status at discharge: patient is progressing back to baseline Discharge Orders: Discharge Order (Routine); Ordered 11/30/20 Ordered By: Val Jean Pending Pending Pending: Resuscitation Status Resuscitate (Full Code) Diet Clear Liquid Diet Start Sat Sep 4 1536 Cefepime HCl (Cefepime 2 Gm Vial) 2 gm IV Q8H RC; Protocol Last Admin: 11/30/20 13:36 Dose: 2 gm Documented by: Admin: 11/30/20 05:10 Dose: 2 gm Documented by: MARIA ALEJANDRA Admin: 11/29/20 21:34 Dose: 2 gm Documented by: MARIA ALEJANDRA Admin: 11/29/20 13:46 Dose: 2 gm Documented by: Admin: 11/29/20 05:29 Dose: 2 gm Documented by: MARIA ALEJANDRA Admin: 11/28/20 22:41 Dose: 2 gm Documented by: Admin: 11/28/20 14:56 Dose: 2 gm Documented by: CLEVE Sodium Chloride (Sodium Chloride 0.9%) 1,000 mls @ 125 mls/hr IV .Q8H RC Last Admin: 11/30/20 13:41 Dose: Not Given Documented by: Admin: 11/30/20 10:20 Dose: 125 mls/hr Documented by: Admin: 11/30/20 09:33 Dose: Not Given Documented by: Infusion: 11/30/20 04:29 Dose: 125 mls/hr Documented by: Admin: 11/29/20 22:25 Dose: Not Given Documented by: Admin: 11/29/20 20:29 Dose: 125 mls/hr Documented by: Admin: 11/29/20 14:32 Dose: Not Given Documented by: Admin: 11/29/20 07:45 Dose: Not Given Documented by: Infusion: 11/29/20 06:46 Dose: 125 mls/hr Documented by: Admin: 11/28/20 22:46 Dose: 125 mls/hr Documented by: Infusion: 11/28/20 19:33 Dose: 0 mls/hr Documented by: MARIA ALEJANDRA Admin: 11/28/20 14:56 Dose: Not Given Documented by: Admin: 11/28/20 07:37 Dose: Not Given Documented by: Admin: 11/28/20 03:36 Dose: 125 mls/hr Documented by: Infusion: 11/28/20 00:20 Dose: 125 mls/hr Documented by: Admin: 11/27/20 23:51 Dose: Not Given Documented by: Admin: 11/27/20 16:20 Dose: 125 mls/hr Documented by: CLEVE Metronidazole (Flagyl) 500 mg in 100 mls @ 100 mls/hr IV Q6H RC; Protocol Last Infusion: 11/30/20 15:02 Dose: 0 mls/hr Documented by: Admin: 11/30/20 13:36 Dose: 100 mls/hr Documented by: Infusion: 11/30/20 06:28 Dose: 0 mls/hr Documented by: Admin: 11/30/20 05:11 Dose: 100 mls/hr Documented by: MARIA ALEJANDRA Infusion: 11/30/20 01:21 Dose: 0 mls/hr Documented by: MARIA ALEJANDRA Admin: 11/29/20 23:42 Dose: 100 mls/hr Documented by: MARIA ALEJANDRA Infusion: 11/29/20 18:30 Dose: 0 mls/hr Documented by: Admin: 11/29/20 17:22 Dose: 100 mls/hr Documented by: Infusion: 11/29/20 12:59 Dose: 0 mls/hr Documented by: Admin: 11/29/20 11:58 Dose: 100 mls/hr Documented by: Infusion: 11/29/20 07:44 Dose: 0 mls/hr Documented by: Admin: 11/29/20 05:41 Dose: 100 mls/hr Documented by: MARIA ALEJANDRA Infusion: 11/29/20 01:44 Dose: 0 mls/hr Documented by: Admin: 11/29/20 00:27 Dose: 100 mls/hr Documented by: MARIA ALEJANDRA Infusion: 11/28/20 21:08 Dose: 0 mls/hr Documented by: MARIA ALEJANDRA Admin: 11/28/20 19:28 Dose: 100 mls/hr Documented by: MARIA ALEJANDRA Infusion: 11/28/20 13:38 Dose: 0 mls/hr Documented by: Admin: 11/28/20 12:18 Dose: 100 mls/hr Documented by: Infusion: 11/28/20 07:37 Dose: 0 mls/hr Documented by: Admin: 11/28/20 05:48 Dose: 100 mls/hr Documented by: Infusion: 11/28/20 01:15 Dose: 0 mls/hr Documented by: Admin: 11/27/20 23:17 Dose: 100 mls/hr Documented by: Infusion: 11/27/20 18:25 Dose: 0 mls/hr Documented by: Admin: 11/27/20 17:24 Dose: 100 mls/hr Documented by: CLEVE Metoclopramide HCl (Metoclopramide 10 Mg/2 Ml Vial) 10 mg IV Q6 [facility] Admin: 11/30/20 13:36 Dose: 10 mg Documented by: Admin: 11/30/20 05:11 Dose: 10 mg Documented by: MARIA ALEJANDRA Admin: 11/29/20 23:21 Dose: 10 mg Documented by: MARIA ALEJANDRA Admin: 11/29/20 17:22 Dose: 10 mg Documented by: Admin: 11/29/20 11:56 Dose: 10 mg Documented by: Admin: 11/29/20 05:28 Dose: 10 mg Documented by: MARIA ALEJANDRA Admin: 11/29/20 00:31 Dose: 10 mg Documented by: MARIA ALEJANDRA Admin: 11/28/20 17:36 Dose: 10 mg Documented by: Admin: 11/28/20 12:16 Dose: 10 mg Documented by: Admin: 11/28/20 05:50 Dose: 10 mg Documented by: Admin: 11/27/20 23:17 Dose: 10 mg Documented by: Admin: 11/27/20 18:01 Dose: 10 mg Documented by: CLEVE Ondansetron HCl (Ondansetron 4 Mg/2 Ml Vial) 4 mg IV Q6HP PRN PRN Reason: Nausea And Vomiting Last Admin: 11/27/20 17:20 Dose: 4 mg Documented by: CLEVE Oxycodone HCl (Oxycodone Hcl 5 Mg Tablet) 10 mg PO Q4HP PRN; Protocol PRN Reason: Per Pain Protocol Last Admin: 11/29/20 01:43 Dose: 10 mg Documented by: Admin: 11/28/20 12:23 Dose: 10 mg Documented by: Admin: 11/28/20 04:18 Dose: 10 mg Documented by: EMILE Pantoprazole Sodium (Pantoprazole 40 Mg Tablet) 40 mg PO QAMAC [facility] Last Admin: 11/30/20 06:49 Dose: 40 mg Documented by: Admin: 11/29/20 07:58 Dose: 40 mg Documented by: Admin: 11/28/20 07:55 Dose: 40 mg Documented by: CLEVE Promethazine HCl (Promethazine 25 Mg/Ml Vial) 12.5 mg IV Q4HP PRN; Protocol PRN Reason: Nausea/Vomiting Last Admin: 11/27/20 19:49 Dose: 12.5 mg Documented by: EMILE Sodium Chloride (0.9 % Sodium Chloride 10 Ml Syringe) 10 ml IV Q8 [facility] Last Admin: 11/30/20 13:36 Dose: Not Given Documented by: Admin: 11/30/20 05:22 Dose: Not Given Documented by: MARIA ALEJANDRA Admin: 11/29/20 21:34 Dose: Not Given Documented by: MARIA ALEJANDRA Admin: 11/29/20 13:47 Dose: Not Given Documented by: Admin: 11/29/20 05:57 Dose: Not Given Documented by: MARIA ALEJANDRA Admin: 11/28/20 22:41 Dose: Not Given Documented by: Admin: 11/28/20 12:20 Dose: Not Given Documented by: Admin: 11/28/20 05:51 Dose: Not Given Documented by: Admin: 11/27/20 20:25 Dose: Not Given Documented by: EMILE Shift Summary 11/30/20 03:35 Shift Summary by Guadalupe Shah Addendum entered by Kasandra Krause R.N. 11/30/20 05:30: Patient to have CT of Abdomen this morning, 20G to RAC inserted this morning for procedure. Original Note: Primary Diagnosis: diverticulitis Registration Status: in patient Day of Hospitalization: 11/27/2020 Pertinent Medical Dx/Issues: diverticulitis, hypothyroidism Interventions: clear liquid diet Vital Signs with Trends: VSS on RA, tachycardia Meds: per eMAR, gave Toradol 1 time during this shift Lines/Tubes: IV to left hand with NS running @125ml/hr Date of last BM: 11/30, small loose stools Elimination: void per bathroom, tolerant well Activity: SBA in room Expected date of discharge: TBD Discharge Plan: home? Pt is A&O x4, pleasant and cooperative, ad opal in room, denies nausea, denies abd cramping, report sternum pain 5/10 before bedtime, stated decreased pain after Toradol 30mg IV push. Initialized on 11/30/20 03:35 - END OF NOTE
--- NOTE | 2020-11-30 16:36 | EKG ---
[facility] Test Date: 2020-11-27 Pat Name: Dang Dunn Department: [facility] Room: 131 Gender: Female [employer]: : 1970 Requested By: Val Jean Order Number: [id number] Reading MD: Soham Carson Measurements Intervals [place] Rate: 93 P: 40 IL: 136 QRS: 6 QRSD: 80 T: -7 QT: 352 QTc: 438 Interpretive Statements SINUS RHYTHM Electronically Signed On 11-30-2020 16:35:56 PDT by Soham Carson /store/M0/[id number]
== END 2020-11-30 17:12 | disposition home or self-care (01) | DRG 392 ==
LOC: ED 11:11 → MEDSUR 15:30
PROVIDERS: ADMIT Family Medicine Adult Medicine; ATTEND Family Medicine Adult Medicine